=== PATIENT | male | born 1995 | race Hispanic/Latino ===

== ENCOUNTER 2024-04-29 20:40 | Emergency (ER) | payer SELFPAY ==
[~2024-04-29] VITALS: Ht 172.7 cm; Wt 74.0 kg
[2024-04-29 21:25] VITALS: BP 119/71
[2024-04-29 21:30] VITALS: BP 116/73
[2024-04-29 22:01] VITALS: BP 117/65
[2024-04-29] MEDS ORDERED: [UNRECOGNIZED DRUG - CODE] EX (22:21)
[2024-04-29] MEDS ORDERED: AMOX/K CLAV875 M1 PO (22:21)
[2024-04-29 22:31] VITALS: BP 120/74
[2024-04-29 23:00] VITALS: BP 122/71
[2024-04-29 23:04] VITALS: BP 124/74
== END 2024-04-29 23:28 | disposition home or self-care (01) | DRG 159 ==
LOC: ED 20:40
DX: K12.0 Recurrent oral aphthae (principal); Z72.0 Tobacco use